=== PATIENT | female | born 1970 | race Caucasian/White ===

== ENCOUNTER 2020-11-12 14:20 | Observation (INO) ==
[2020-11-12] MEDS ORDERED: Ondansetron 4 MG/2 ML VIAL IVP ONE (15:59)
[2020-11-12] MEDS ORDERED: Morphine Sulfate 2 MG/ML SYRINGE IVP ONE (15:59)
[2020-11-12 16:45] LABS: Basophils # 0.1 K/mcL (0.0-0.2); Basophils % 0.7 %; Eosinophils # 0.3 K/mcL (0.0-0.6); Eosinophils % 2.5 %; Hematocrit 42.6 % (35.3-44.9); Hemoglobin 13.6 g/dL (11.5-15.4); Immature Granulocytes % 0.5 % (0-4); Lymphocytes % 30.1 %; Mean Corpuscular HGB Conc 31.9 g/dL (31.6-35.5); Mean Corpuscular Hemoglobin 29.1 pg (28.0-33.3); Mean Platelet Volume 11.8 fL (9.4-12.4); Monocytes # 0.9 K/mcL (0.0-1.3); Monocytes % 6.8 %; Neutrophils # 7.8 K/mcL (1.6-8.9); Platelet Count 238 K/mcL (140-400); Red Blood Count 4.68 M/mcL (3.82-4.97); Red Cell Distribution Width 13.1 % (11.5-14.5); Segmented Neutrophils % 59.4 %; White Blood Count 13.2 K/mcL (4.3-11.1)
[2020-11-12 17:04] LABS: BUN/Creatinine Ratio 21 (6-26); Blood Urea Nitrogen 16 mg/dL (6-20); Carbon Dioxide 29 mEq/L (23-29); Chloride 101 mEq/L (98-107); Glucose 156 mg/dL (70-105); Osmolality,Calculated 288 (280-300); Potassium 3.9 mEq/L (3.5-5.1); Sodium 137 mEq/L (136-145); eGFR For African Americans > 60 (> 60); eGFR For Non-African Americans > 60 (> 60)
[2020-11-12 18:14] LABS: Bacteria,Urine Few per hpf (None-Few); Bilirubin,Urine Negative (Negative); Blood,Urine Negative (Negative); Clarity,Urine Turbid (Clear); Color,Urine Yellow (Yellow); Glucose,Urine (UA) Normal (Normal); Ketones,Urine Negative (Negative); Leukocyte Esterase,Urine Negative (Negative); Mucus,Urine Few per lpf (None-Few); Nitrite,Urine Negative (Negative); PH,Urine 5.5 pH Units (5.0-8.0); Protein,Urine Trace mg/dL (Neg-Trace); RBC,Urine 0-3 per hpf (0-3); Specific Gravity,Urine 1.029 (1.010-1.025); Squamous Epithelial Cell,Urine Moderate per hpf (None-Few); Urobilinogen,Urine Normal (Normal); WBC,Urine 0-3 per hpf (0-3)
[2020-11-12] MEDS ORDERED: D5% in Water 1,000 ML IVC PRN (20:42)
[2020-11-12] MEDS ORDERED: Dextrose Gel 15 GM/37.5 ML TUBE PO PRN ×2 (20:42)
[2020-11-12] MEDS ORDERED: *HR* Dextrose 50 % in Water (Vial) 50 ML VIAL IVP PRN (20:42)
[2020-11-12] MEDS ORDERED: *HR* HYDROmorphone 2 MG TABLET PO ONE (20:42)
[2020-11-12] MEDS ORDERED: FLUoxetine 20 MG CAPSULE PO SCH (20:45)
[2020-11-12] MEDS ORDERED: Melatonin 3 MG TABLET PO SCH (21:00)
[2020-11-12] MEDS ORDERED: Ondansetron 4 MG/2 ML VIAL IVP PRN (21:17)
[2020-11-12] MEDS ORDERED: Naloxone 0.4 MG/ML INJ IVP PRN (21:17)
[2020-11-12] MEDS ORDERED: Acetaminophen 325 MG TABLET PO PRN (21:17)
[2020-11-12] MEDS ORDERED: 0.9 % Sodium Chloride 1,000 ML IVC SCH (21:30)
[2020-11-12] MEDS: Gabapentin 100 MG CAPSULE PO SCH (22:06)
[2020-11-13] MEDS: Insulin LISPRO 300 UNITS/3 ML VIAL SUBQ SCH ×3 (00:31→11:28)
[2020-11-13 02:58] LABS: Hematocrit 37.8 % (35.3-44.9); Hemoglobin 12.3 g/dL (11.5-15.4); Mean Corpuscular HGB Conc 32.5 g/dL (31.6-35.5); Mean Corpuscular Volume 92.2 fL (83.0-100.0); Mean Platelet Volume 11.7 fL (9.4-12.4); Platelet Count 202 K/mcL (140-400); Red Cell Distribution Width 13.1 % (11.5-14.5); White Blood Count 12.2 K/mcL (4.3-11.1)
[2020-11-13 03:16] LABS: BUN/Creatinine Ratio 25 (6-26); Blood Urea Nitrogen 18 mg/dL (6-20); Calcium 8.4 mg/dL (8.6-10.3); Carbon Dioxide 27 mEq/L (23-29); Chloride 104 mEq/L (98-107); Chol/HDL Ratio 3.6 (0-4.9); Cholesterol 126 mg/dL (< 200); Glucose 97 mg/dL (70-105); HDL Cholesterol 35 mg/dL (40-59); LDL Cholesterol,Calculated 48 mg/dL (< 100); Magnesium 1.9 mg/dL (1.6-2.6); Osmolality,Calculated 290 (280-300); Potassium 3.9 mEq/L (3.5-5.1); Sodium 139 mEq/L (136-145); Triglycerides 213 mg/dL (< 150); eGFR For African Americans > 60 (> 60); eGFR For Non-African Americans > 60 (> 60)
[2020-11-13 04:36] LABS: Adenovirus Not Detected (Not Detect); Bordetella Pertussis Not Detected (Not Detect); Chlamydophila pneumoniae Not Detected (Not Detect); Coronavirus 229E Not Detected (Not Detect); Coronavirus HKU1 Not Detected (Not Detect); Coronavirus NL63 Not Detected (Not Detect); Coronavirus OC43 Not Detected (Not Detect); Human Metapneumovirus Not Detected (Not Detect); Human Rhinovirus/Enterovirus Not Detected (Not Detect); Influenza A Subtype 2009 H1 Not Detected (Not Detect); Influenza B Not Detected (Not Detect); Mycoplasma pneumoniae Not Detected (Not Detect); Parainfluenza Virus 1 Not Detected (Not Detect); Parainfluenza Virus 2 Not Detected (Not Detect); Parainfluenza Virus 3 Not Detected (Not Detect); Parainfluenza Virus 4 Not Detected (Not Detect); Respiratory Syncytial Virus Not Detected (Not Detect); SARS-CoV-2 Not Detected (Not Detect)
[2020-11-13] MEDS ORDERED: Acetaminophen IV 1,000 MG/100 ML BAG IVPB ONE (04:51)
[2020-11-13] MEDS ORDERED: *HR* Repaglinide 1 MG TABLET PO SCH (09:00)
[2020-11-13] MEDS ORDERED: Loratadine 10 MG TABLET PO SCH (09:00)
[2020-11-13] MEDS: Gabapentin 100 MG CAPSULE PO SCH ×2 (09:00→11:28)
[2020-11-13 11:49] LABS: Estimated Average Glucose 177 mg/dl; Hemoglobin A1C 7.8 %
[2020-11-13 15:39] VITALS: BP 136/82
[2020-11-13] MEDS ORDERED: *HR* Heparin 5,000 UNIT/ML VIAL SQ SCH (18:00)
== END 2020-11-13 17:06 | disposition home or self-care (01) ==
LOC: EMEROOARM 14:20 → 3NENU 14:20 → SUATTDRO 19:10 → 3NENU 20:07
PROVIDERS: ADMIT Internal Medicine; ATTEND Family Medicine

== ENCOUNTER 2021-03-24 06:26 | Observation (INO) ==
[2021-03-24] MEDS ORDERED: CeFAZolin Syr 3,000MG/30 ML 3,000 MG/30 ML SYRINGE IVPB ONE (06:45)
[2021-03-24] MEDS ORDERED: Ringers Solution, Lactated 1,000 ML IVC SCH (06:45)
[2021-03-24] MEDS ORDERED: Vancomycin 1,000 MG VIAL ONE ×2 (07:11→07:36)
[2021-03-24] MEDS ORDERED: *HR* Propofol 200 MG/20 ML VIAL IVP ONE (07:16)
[2021-03-24] MEDS ORDERED: *HR* FentaNYL (PF) 100 MCG/2 ML VIAL ONE ×2 (07:16→11:29)
[2021-03-24] MEDS ORDERED: *HR* Midazolam HCl 2 MG/2 ML VIAL ONE (07:16)
[2021-03-24] MEDS ORDERED: *HR* Remifentanil 1 MG VIAL IVP ONE ×4 (07:18→11:46)
[2021-03-24] MEDS ORDERED: *HR* Rocuronium Bromide 50 MG/5 ML VIAL ONE (07:18)
[2021-03-24] MEDS ORDERED: Lidocaine -MPF 2% 2 ML VIAL ONE (07:18)
[2021-03-24] MEDS ORDERED: *HR* OxyCODONE Immed Rel 5 MG TABLET PO PRN (07:24)
[2021-03-24] MEDS ORDERED: Ondansetron 4 MG/2 ML VIAL IVP PRN ×2 (07:24→14:09)
[2021-03-24] MEDS ORDERED: Polymyxin B Sulfate 500,000 UNIT, Sodium Chloride IRRigation 1,000 ML IR ONE (07:45)
[2021-03-24] MEDS ORDERED: *HR* Phenylephrine 10 MG/ML VIAL ONE (08:32)
[2021-03-24] MEDS ORDERED: Ondansetron 4 MG/2 ML VIAL ONE (10:31)
[2021-03-24] MEDS ORDERED: Sugammadex Sodium 200 MG/2 ML VIAL IV ONE (11:45)
[2021-03-24] MEDS ORDERED: ceFAZolin 3,000 MG in 0.9 % Sodium Chloride 100 ML IVPB ONE (12:45)
[2021-03-24] MEDS ORDERED: *HR* HYDROMORPHONE 2 MG/ML VIAL ONE (12:45)
[2021-03-24] MEDS ORDERED: *HR* Labetalol 20 MG/4 ML SYRINGE IVP ONE (13:00)
[2021-03-24] MEDS: *HR* HYDROmorphone PF 0.5 MG/0.5 ML SYRINGE IVP PRN ×2 (13:15→13:28)
[2021-03-24] MEDS ORDERED: Naloxone 0.4 MG/ML INJ IVP PRN (14:09)
[2021-03-24] MEDS: *HR* OxyCODONE Immed Rel 5 MG TABLET PO PRN ×2 (14:46→21:22)
[2021-03-24] MEDS: FLUoxetine 20 MG CAPSULE PO SCH (17:15)
[2021-03-24] MEDS: *HR* HYDROcodone/Acet 5/325 mg TABLET PO PRN (17:19)
[2021-03-24] MEDS: Insulin DETEMIR 100 UNIT/ML X5UNITS SUBQ SCH (21:16)
[2021-03-24] MEDS: CeFAZolin 2 GM/120 ML BAG IVPB SCH (21:16)
[2021-03-24] MEDS: Ringers Solution, Lactated 1,000 ML IVC SCH (21:16)
[2021-03-24] MEDS: Melatonin 3 MG TABLET PO SCH (21:18)
[2021-03-25] MEDS: *HR* HYDROcodone/Acet 5/325 mg TABLET PO PRN ×4 (00:03→22:28)
[2021-03-25] MEDS: *HR* OxyCODONE Immed Rel 5 MG TABLET PO PRN ×4 (03:07→20:31)
[2021-03-25] MEDS: CeFAZolin 2 GM/120 ML BAG IVPB SCH (04:59)
[2021-03-25] MEDS: *HR* Repaglinide 1 MG TABLET PO SCH ×3 (09:43→17:44)
[2021-03-25] MEDS: Loratadine 10 MG TABLET PO SCH (09:44)
[2021-03-25] MEDS: FLUoxetine 20 MG CAPSULE PO SCH (17:44)
[2021-03-25] MEDS: Ringers Solution, Lactated 1,000 ML IVC SCH ×3 (20:31→20:36)
[2021-03-25] MEDS: Melatonin 3 MG TABLET PO SCH (20:31)
[2021-03-25] MEDS: Insulin DETEMIR 100 UNIT/ML X5UNITS SUBQ SCH (20:40)
[2021-03-26] MEDS: *HR* OxyCODONE Immed Rel 5 MG TABLET PO PRN ×5 (00:55→23:56)
[2021-03-26] MEDS: *HR* HYDROcodone/Acet 5/325 mg TABLET PO PRN ×3 (04:34→16:34)
[2021-03-26] MEDS: Loratadine 10 MG TABLET PO SCH (08:08)
[2021-03-26] MEDS: *HR* Repaglinide 1 MG TABLET PO SCH (16:33)
[2021-03-26] MEDS: FLUoxetine 20 MG CAPSULE PO SCH (16:34)
[2021-03-26] MEDS: diazePAM 10 MG TABLET PO PRN (16:34)
[2021-03-26] MEDS: Acetaminophen 325 MG TABLET PO PRN (20:47)
[2021-03-26] MEDS: Melatonin 3 MG TABLET PO SCH (20:47)
[2021-03-26] MEDS ORDERED: Ketorolac 30 MG/ML VIAL IVP ONE (20:54)
[2021-03-26] MEDS: Insulin DETEMIR 100 UNIT/ML X5UNITS SUBQ SCH (21:05)
[2021-03-26] MEDS: Temazepam 15 MG CAPSULE PO PRN (21:05)
[2021-03-27] MEDS: *HR* HYDROcodone/Acet 5/325 mg TABLET PO PRN ×4 (03:27→23:36)
[2021-03-27] MEDS: *HR* OxyCODONE Immed Rel 5 MG TABLET PO PRN ×4 (05:37→18:38)
[2021-03-27] MEDS: Acetaminophen 325 MG TABLET PO PRN ×2 (08:27→19:52)
[2021-03-27] MEDS: Loratadine 10 MG TABLET PO SCH (08:28)
[2021-03-27] MEDS: diazePAM 10 MG TABLET PO PRN ×2 (08:28→17:07)
[2021-03-27] MEDS: FLUoxetine 20 MG CAPSULE PO SCH (17:06)
[2021-03-27] MEDS: *HR* Repaglinide 1 MG TABLET PO SCH (17:06)
[2021-03-27] MEDS ORDERED: Ketorolac 30 MG/ML VIAL IVP ONE (18:01)
[2021-03-27] MEDS: Temazepam 15 MG CAPSULE PO PRN (19:52)
[2021-03-27] MEDS: Melatonin 3 MG TABLET PO SCH (19:52)
[2021-03-27] MEDS: Insulin DETEMIR 100 UNIT/ML X5UNITS SUBQ SCH (19:53)
[2021-03-28] MEDS: *HR* OxyCODONE Immed Rel 5 MG TABLET PO PRN ×5 (00:51→23:56)
[2021-03-28] MEDS: diazePAM 10 MG TABLET PO PRN ×3 (03:34→23:59)
[2021-03-28] MEDS: Loratadine 10 MG TABLET PO SCH (07:53)
[2021-03-28] MEDS: *HR* HYDROcodone/Acet 5/325 mg TABLET PO PRN ×2 (07:54→17:32)
[2021-03-28] MEDS: *HR* Repaglinide 1 MG TABLET PO SCH (15:19)
[2021-03-28] MEDS: FLUoxetine 20 MG CAPSULE PO SCH (15:19)
[2021-03-28] MEDS: Melatonin 3 MG TABLET PO SCH (19:36)
[2021-03-28] MEDS: Insulin DETEMIR 100 UNIT/ML X5UNITS SUBQ SCH (21:11)
[2021-03-29] MEDS: *HR* HYDROcodone/Acet 5/325 mg TABLET PO PRN ×2 (03:11→13:30)
[2021-03-29] MEDS: *HR* OxyCODONE Immed Rel 5 MG TABLET PO PRN ×3 (05:43→15:19)
[2021-03-29] MEDS: Loratadine 10 MG TABLET PO SCH (08:09)
[2021-03-29 10:54] VITALS: BP 159/76; PULSE 102; TEMP 98.4; O2SAT 95
== END 2021-03-29 16:00 | disposition home or self-care (01) ==
LOC: SAMDAY 06:26 → 3NENU 06:26
PROVIDERS: ADMIT Orthopaedic Surgery Orthopaedic Surgery of the Spine; ATTEND Orthopaedic Surgery Orthopaedic Surgery of the Spine

== ENCOUNTER 2021-05-11 09:13 | Observation (INO) ==
[2021-05-11 15:01] LABS: Hemoglobin 11.6 g/dL (11.5-15.4)
[2021-05-11 15:07] LABS: Basophils % 0.7 %; Mean Corpuscular Hemoglobin 26.9 pg (28.0-33.3); Red Blood Count 4.31 M/mcL (3.82-4.97)
[2021-05-11 15:09] LABS: Basophils # 0.1 K/mcL (0.0-0.2); Eosinophils # 0.3 K/mcL (0.0-0.6); Eosinophils % 2.2 %; Hematocrit 36.3 % (35.3-44.9); Immature Granulocytes % 0.7 % (0-4); Immature Platelets 5.1 % (1.1-6.1); Lymphocytes % 33.5 %; Mean Corpuscular Volume 84.2 fL (83.0-100.0); Mean Platelet Volume 11.4 fL (9.4-12.4); Monocytes # 0.8 K/mcL (0.0-1.3); Monocytes % 6.6 %; Neutrophils # 6.8 K/mcL (1.6-8.9); Platelet Count 319 K/mcL (140-400); Segmented Neutrophils % 56.3 %
[2021-05-11] MEDS: *HR* Repaglinide 1 MG TABLET PO SCH (17:38)
[2021-05-11] MEDS ORDERED: FLUoxetine 20 MG CAPSULE PO SCH (18:00)
[2021-05-11 20:20] LABS: BUN/Creatinine Ratio 12 (6-26); Blood Urea Nitrogen 9 mg/dL (6-20); Calcium 9.1 mg/dL (8.6-10.3); Carbon Dioxide 28 mEq/L (23-29); Chloride 104 mEq/L (98-107); Glucose 118 mg/dL (70-105); Osmolality,Calculated 288 (280-300); Potassium 4.3 mEq/L (3.5-5.1); Sodium 139 mEq/L (136-145); eGFR For African Americans > 60 (> 60); eGFR For Non-African Americans > 60 (> 60)
[2021-05-11] MEDS: Gabapentin 300 MG CAPSULE PO SCH (20:50)
[2021-05-11] MEDS ORDERED: Melatonin 3 MG TABLET PO SCH (21:00)
[2021-05-11] MEDS ORDERED: Insulin DETEMIR 100 UNIT/ML X5UNITS SUBQ SCH (21:00)
[2021-05-12] MEDS: Gabapentin 300 MG CAPSULE PO SCH ×3 (08:27→16:55)
[2021-05-12] MEDS ORDERED: D5% in Water 1,000 ML IVC PRN (09:00)
[2021-05-12] MEDS ORDERED: *HR* Dextrose 50 % in Water (Syg) 50 ML SYRINGE IVP PRN ×2 (09:00→13:22)
[2021-05-12] MEDS ORDERED: Dextrose Gel 15 GM/37.5 ML TUBE PO PRN ×2 (09:00)
[2021-05-12] MEDS ORDERED: Loratadine 10 MG TABLET PO SCH (09:00)
[2021-05-12] MEDS ORDERED: *HR* Propofol 200 MG/20 ML VIAL IVP ONE (13:20)
[2021-05-12] MEDS ORDERED: *HR* Midazolam HCl 2 MG/2 ML VIAL ONE (13:20)
[2021-05-12] MEDS ORDERED: *HR* FentaNYL (PF) 100 MCG/2 ML VIAL ONE (13:20)
[2021-05-12] MEDS ORDERED: Lidocaine -MPF 2% 5 ML VIAL ONE (13:21)
[2021-05-12] MEDS ORDERED: *HR* Rocuronium Bromide 50 MG/5 ML VIAL ONE (13:21)
[2021-05-12] MEDS ORDERED: Lidocaine HCL 4 ML Topical Solution (Laryng-O-Jet Kit Sterile Pak) TP ONE (13:21)
[2021-05-12] MEDS ORDERED: *HR* Succinylcholine 200 MG/10 ML VIAL IVP ONE (13:21)
[2021-05-12] MEDS ORDERED: Ondansetron 4 MG/2 ML VIAL ONE (13:21)
[2021-05-12] MEDS ORDERED: Ringers Solution, Lactated 1,000 ML IVC SCH ×2 (13:30→17:04)
[2021-05-12] MEDS ORDERED: Vancomycin 1,000 MG VIAL ONE (14:07)
[2021-05-12] MEDS ORDERED: Polymyxin B Sulfate 500,000 UNIT, Sodium Chloride IRRigation 1,000 ML IR ONE (14:15)
[2021-05-12] MEDS ORDERED: Lidocaine -MPF 4% 5 ML AMPUL ONE (14:38)
[2021-05-12] MEDS ORDERED: Ondansetron 4 MG/2 ML VIAL IVP PRN (16:13)
[2021-05-12] MEDS ORDERED: *HR* HYDROmorphone PF 0.5 MG/0.5 ML SYRINGE IVP PRN (16:13)
[2021-05-12] MEDS: *HR* FentaNYL (PF) 100 MCG/2 ML VIAL IVP PRN ×2 (16:21→16:30)
[2021-05-12 16:51] VITALS: O2SAT 95
[2021-05-12] MEDS ORDERED: CeFAZolin Syr 2,000MG/20 ML 2,000 MG/20 ML SYRINGE IVPB ONE (17:00)
[2021-05-12] MEDS ORDERED: Acetaminophen 325 MG TABLET PO PRN (17:04)
[2021-05-12] MEDS ORDERED: *HR* HYDROcodone/Acet 5/325 mg TABLET PO PRN (17:04)
[2021-05-12] MEDS ORDERED: Naloxone 0.4 MG/ML INJ IVP PRN (17:04)
[2021-05-12] MEDS ORDERED: *HR* OxyCODONE Immed Rel 5 MG TABLET PO PRN (17:04)
[2021-05-12] MEDS: *HR* Repaglinide 1 MG TABLET PO SCH (18:05)
[2021-05-12 19:14] VITALS: BP 157/91; PULSE 86; TEMP 98.1
[2021-05-13] MEDS ORDERED: *HR* Repaglinide 1 MG TABLET PO SCH (09:00)
[2021-05-15] MEDS ORDERED: Cholecalciferol (D-3) 1,000 UNIT (25MCG) TABLET PO SCH (09:00)
== END 2021-05-12 21:40 | disposition home or self-care (01) ==
LOC: 4WAOSI
PROVIDERS: ADMIT Orthopaedic Surgery Orthopaedic Surgery of the Spine; ATTEND Orthopaedic Surgery Orthopaedic Surgery of the Spine